=== PATIENT | male | born 1995 | race Caucasian/White ===

== ENCOUNTER 2017-04-22 10:34 | Emergency (ER) | payer OTHER ==
[2017-04-22 10:40] VITALS: BP 128/60; PULSE 90; TEMP 98; BMI 28.1
[2017-04-22] MEDS ORDERED: RABIES VACCINE (PCEC)/PF 2.5 UNIT/VIAL IM ONE (10:53)
--- NOTE | 2017-04-22 11:00 | PDOC ---
History of Present Illness - General Chief Complaint: Revisit,Rabies Injection Stated Complaint: REVISIT,RABIES INJECTION Time Seen by Provider: 04/22/17 10:53 - History of Present Illness Initial Comments: 04/22/17 10:56 CHIEF COMPLAINT: rabies HISTORY OF PRESENT ILLNESS: 22 yo M presents to [facility] for second series of rabies vaccines s/p coyote bite to R calf. Patient denies any symptoms other than "sometimes the bite wounds hurt a little, some days they don't." REVIEW OF SYSTEMS General/Constitutional: Denies fever or chills. Denies weakness. HEENT: Denies change in vision. Denies ear pain or discharge. Denies sore throat. Cardiovascular: Denies chest pain or shortness of breath. Respiratory: Denies cough, wheezing, or hemoptysis. Gastrointestinal: Denies nausea, vomiting, diarrhea. Genitourinary: Denies dysuria, frequency, or change in urination. Musculoskeletal: Denies joint or muscle swelling or pain. Denies neck or back pain. Skin: "Sometimes the bite wounds hurt a little, sometimes they don't." Neurologic: Denies changes in mental status, memory loss, headache, vertigo, loss of consciousness, or loss of sensation. PHYSICAL EXAM General Appearance: Well-appearing, appropriately dressed. No apparent distress.. HEENT: EOMI, PERRLA, normal ENT inspection, normal voice, TMs normal, pharynx normal. No conjunctival pallor. No photophobia, scleral icterus. Neck: Supple. Trachea midline. No tenderness, rigidity, carotid bruit, stridor , lymphadenopathy, or thyromegaly. Respiratory/Chest: Lungs CTAB. No shortness of breath, chest tenderness, respiratory distress, accessory muscle use. No crackles, rales, rhonchi, stridor , wheezing, dullness Cardiovascular: RRR. S1, S2. No JVD, murmur, bradycardia, tachycardia. Vascular Pulses: Dorsalis-Pedis (R): 2+, Dorsalis-Pedis (L): 2+ Gastrointestinal/Abdominal: Normal bowel sounds. Abdomen soft, non-distended. No tenderness or rebound tenderness. No organomegaly, pulsatile mass, guarding , hernia, hepatomegaly, splenomegaly. Lymphatic: No adenopathy, tenderness. Musculoskeletal/Extremities: FROM of all extremities, normal capillary refill. Integumentary: 2 puncture wounds with surrounding abrasion to R calf. No tenderness,edema, swelling, erythema or deformity. Neurologic: ios software engineer II-XII intact. Fully oriented, alert. Appropriate mood/affect. Motor strength 5/5. No appreciable EOM palsy, facial droop or sensory deficit. Past History - Past Medical History Allergies/Adverse Reactions: Allergies Allergy/AdvReac Type Severity Reaction Status Date / Time No Known Allergies Allergy Verified 04/22/17 10:37 Home Medications: Ambulatory Orders Amox-Tr/K Cl [Augmentin - 875Mg Tablet] 1 tab PO BID #14 tablet 04/19/17 Aripiprazole 2 mg PO ASDIR 04/19/17 Cholecalciferol (Vitamin D3) [Vitamin D -] 400 unit PO ASDIR 04/19/17 Clonazepam 0.5 mg PO ASDIR 04/19/17 Escitalopram Oxalate [Lexapro -] 10 mg PO DAILY 04/19/17 COPD: No Psychiatric Problems: Yes (Depression, anxeity) - Suicide/Smoking/Psychosocial Hx Smoking History: Never smoked Have you smoked in the past 12 months: No Information on smoking cessation initiated: No Hx Alcohol Use: No Drug/Substance Use Hx: No Substance Use Type: None *Physical Exam - Vital Signs Last Vital Signs Temp Pulse Resp BP Pulse Ox 98.0 F 90 18 128/60 100 04/22/17 10:38 04/22/17 10:38 04/22/17 10:38 04/22/17 10:38 04/22/17 10:38 Medical Decision Making - Medical Decision Making 04/22/17 10:59 22 yo M [facility] series of rabies vaccines s/p coyote bite to R calf. 2nd vax in series given. Patient to return in 1 week for 3rd vax. *DC/Admit/Observation/Transfer Diagnosis at time of Disposition: Need for rabies vaccination, Animal bite of right lower leg - Discharge Dispostion Disposition: HOME Condition at time of disposition: Stable Admit: No - Referrals - Patient Instructions Printed Discharge Instructions: DI for Rabies Vaccine - Post Discharge Activity
== END 2017-04-22 11:08 | disposition home or self-care (01) ==
LOC: JERFT 10:34
PROC: 3E0234Z Introduction of Serum, Toxoid and Vaccine into Muscle, Percutaneous Approach (ICD-10-PCS; principal; 2017-04-22)
DX: Z23 Encounter for immunization (principal); Z20.3 Contact with and (suspected) exposure to rabies; S81.851D Open bite, right lower leg, subsequent encounter; W64.XXXD Exposure to other animate mechanical forces, subsequent encounter
CPT/HCPCS: 90675; 99281-25

== ENCOUNTER 2017-04-26 10:34 | Emergency (ER) | payer OTHER ==
[2017-04-26 10:40] VITALS: BP 113/67; PULSE 79; TEMP 97.9; BMI 28.1
--- NOTE | 2017-04-26 10:55 | PDOC ---
History of Present Illness - General Chief Complaint: Revisit,Rabies Injection Stated Complaint: REVISIT, RABIES INJECTION Time Seen by Provider: 04/26/17 10:54 History Source: Patient Exam Limitations: No Limitations - History of Present Illness Initial Comments: 04/26/17 11:22 Patient here for third rabies vaccination, right leg wound is healing well there is no erythema edema or secondary signs of infection. Patient denies any pain, no shortness of breath, no other complaints. Past History - Past Medical History Allergies/Adverse Reactions: Allergies Allergy/AdvReac Type Severity Reaction Status Date / Time No Known Allergies Allergy Verified 04/26/17 10:37 Home Medications: Ambulatory Orders Amox-Tr/K Cl [Augmentin - 875Mg Tablet] 1 tab PO BID #14 tablet 04/19/17 Aripiprazole 2 mg PO ASDIR 04/19/17 Cholecalciferol (Vitamin D3) [Vitamin D -] 400 unit PO ASDIR 04/19/17 Clonazepam 0.5 mg PO ASDIR 04/19/17 Escitalopram Oxalate [Lexapro -] 10 mg PO DAILY 04/19/17 COPD: No Psychiatric Problems: Yes (Depression, anxeity) - Immunization History Immunization Up to Date: Yes - Suicide/Smoking/Psychosocial Hx Smoking History: Never smoked Have you smoked in the past 12 months: No Hx Alcohol Use: No Drug/Substance Use Hx: No Substance Use Type: None Review of Systems - Review of Systems All Other Systems: Reviewed and Negative *Physical Exam - Vital Signs Last Vital Signs Temp Pulse Resp BP Pulse Ox 97.9 F 79 18 113/67 99 04/26/17 10:37 04/26/17 10:37 04/26/17 10:37 04/26/17 10:37 04/26/17 10:37 - Physical Exam General Appearance: Yes: Appropriately Dressed. No: Apparent Distress Neck: negative: Tender lateral, Tender midline Respiratory/Chest: positive: Lungs Clear, Normal Breath Sounds Cardiovascular: positive: Regular Rhythm, Regular Rate Lymphatic: negative: Adenopathy Musculoskeletal: positive: Normal Inspection Extremity: positive: Normal Capillary Refill, Normal Inspection, Normal Range of Motion. negative: Tender Integumentary: positive: Normal Color, Dry. negative: Erythema, Swelling, Ecchymosis Neurologic: positive: Alert, Normal Mood/Affect Medical Decision Making - Medical Decision Making 04/26/17 11:22 A/P: Patient here for rabies vaccination, third and a series of 4, will require return for 1 more vaccination. *DC/Admit/Observation/Transfer Diagnosis at time of Disposition: Need for rabies vaccination - Discharge Dispostion Disposition: HOME Condition at time of disposition: Stable Admit: No - Referrals Referrals: ON STAFF,NOT [Primary Care Provider] - - Patient Instructions - Post Discharge Activity Forms/Work/School Notes: Rabies Vaccination F/U Sol.
[2017-04-26] MEDS ORDERED: RABIES VACCINE (PCEC)/PF 2.5 UNIT/VIAL IM ONE (11:21)
== END 2017-04-26 11:23 | disposition home or self-care (01) ==
LOC: JERFT 10:34
PROC: 3E0234Z Introduction of Serum, Toxoid and Vaccine into Muscle, Percutaneous Approach (ICD-10-PCS; principal; 2017-04-26)
DX: Z23 Encounter for immunization (principal); Z20.3 Contact with and (suspected) exposure to rabies
CPT/HCPCS: 90675; 99281-25

== ENCOUNTER 2017-05-03 13:14 | Emergency (ER) | payer OTHER ==
[2017-05-03 13:20] VITALS: BP 116/74; PULSE 72; TEMP 98.1; BMI 25.8
[2017-05-03] MEDS ORDERED: RABIES VACCINE (PCEC)/PF 2.5 UNIT/VIAL IM ONE (13:46)
--- NOTE | 2017-05-03 13:47 | PDOC ---
History of Present Illness - General Chief Complaint: Revisit,Rabies Injection Stated Complaint: REVISIT/ INJECTION Time Seen by Provider: 05/03/17 13:35 History Source: Patient Exam Limitations: No Limitations - History of Present Illness Initial Comments: 05/03/17 15:02 22 yr male here for fourth rabies vaccine. Pt was bit by a coyote to the right lower leg. Pt has no fever no pain, states the wounds are healing well. Past History - Past Medical History Allergies/Adverse Reactions: Allergies Allergy/AdvReac Type Severity Reaction Status Date / Time No Known Allergies Allergy Verified 05/03/17 13:20 Home Medications: Ambulatory Orders Aripiprazole 2 mg PO ASDIR 04/19/17 Cholecalciferol (Vitamin D3) [Vitamin D -] 400 unit PO ASDIR 04/19/17 Clonazepam 0.5 mg PO ASDIR 04/19/17 Escitalopram Oxalate [Lexapro -] 10 mg PO DAILY 04/19/17 COPD: No Psychiatric Problems: Yes (Depression, anxeity) - Immunization History Immunization Up to Date: Yes - Suicide/Smoking/Psychosocial Hx Smoking History: Never smoked Have you smoked in the past 12 months: No Information on smoking cessation initiated: No Hx Alcohol Use: No Drug/Substance Use Hx: No Substance Use Type: None Review of Systems - Review of Systems Able to Perform ROS?: Yes Is the patient limited Burmese proficient: No Constitutional: No: Symptoms Reported HEENTM: No: Symptoms Reported Respiratory: No: Symptoms reported Cardiac (ROS): No: Symptoms Reported ABD/GI: No: Symptoms Reported : No: Symptoms Reported Musculoskeletal: No: Symptoms Reported *Physical Exam - Vital Signs Last Vital Signs Temp Pulse Resp BP Pulse Ox 98.1 F 72 18 116/74 100 05/03/17 13:17 05/03/17 13:17 05/03/17 13:17 05/03/17 13:17 05/03/17 13:17 - Physical Exam General Appearance: Yes: Nourished, Appropriately Dressed HEENT: positive: EOMI, DARION Musculoskeletal: positive: Normal Inspection Extremity: positive: Normal Capillary Refill Integumentary: positive: Normal Color, Other (right lower leg with 2x1cm healed bite wounds, no redness, scabbing intact no drainage) Neurologic: positive: Fully Oriented, Alert, Normal Mood/Affect, Normal Response , Motor Strength 5/5 Medical Decision Making - Medical Decision Making 05/03/17 15:08 cc: rabies vaccine #4 no complaints no fever s wound is well healed dry and intact will give final shot *DC/Admit/Observation/Transfer Diagnosis at time of Disposition: Need for rabies vaccination - Discharge Dispostion Disposition: HOME Condition at time of disposition: Good - Referrals - Patient Instructions Printed Discharge Instructions: DI for Rabies Vaccine Additional Instructions: follow with your doctor for any concerns - Post Discharge Activity
== END 2017-05-03 13:49 | disposition home or self-care (01) ==
LOC: JERFT 13:14
PROC: 3E0234Z Introduction of Serum, Toxoid and Vaccine into Muscle, Percutaneous Approach (ICD-10-PCS; principal; 2017-05-03)
DX: Z20.3 Contact with and (suspected) exposure to rabies (principal); S81.851D Open bite, right lower leg, subsequent encounter; W64.XXXD Exposure to other animate mechanical forces, subsequent encounter
CPT/HCPCS: 90675; 99281-25